=== PATIENT | male | born 1985 | race American Indian/Alaskan Native ===

== ENCOUNTER 2019-07-30 19:31 | Emergency (ER) | payer OTHER ==
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
[2019-07-30 19:50] VITALS: BP 155/95
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
[2019-07-30] MEDS ORDERED: IBUPROFEN 800 MG TAB PO ONE (21:06)
[2019-07-30] MEDS ORDERED: HYDROcodone/ACETAMINOPHEN 5-325 MG TAB PO ONE (21:06)
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
== END 2019-07-30 21:22 | disposition home or self-care (01) ==
LOC: ED 19:31
DX: S16.1XXA Strain of muscle, fascia and tendon at neck level, initial encounter (principal); S39.012A Strain of muscle, fascia and tendon of lower back, initial encounter; X58.XXXA Exposure to other specified factors, initial encounter; Y93.89 Activity, other specified; Y92.89 Other specified places as the place of occurrence of the external cause; Y99.8 Other external cause status
CPT/HCPCS: 72040; 72100